=== PATIENT | female | born 1990 | race Hispanic/Latino ===

== ENCOUNTER 2022-07-21 17:22 | Day surgery (SDC) | payer OTHER ==
[2022-07-21 17:51] VITALS: BMI 30.2
[2022-07-21 18:18] LABS: Fetal Membranes Rupture No Membranes Rupture (No Rupture)
[2022-07-21] MEDS ORDERED: hydrALAZINE 20 MG/ML VIAL SLOW IVP PRN (18:36)
[2022-07-22 15:33] LABS: Chlamydia by PCR Not Detected (NotDetected); GC by PCR Not Detected (NotDetected)
== END 2022-07-21 18:48 | disposition home or self-care (01) ==
LOC: CSHLD/OP 17:22
PROVIDERS: ATTEND Obstetrics & Gynecology
DX: O99.891 Other specified diseases and conditions complicating pregnancy (principal); N89.8 Other specified noninflammatory disorders of vagina; O47.03 False labor before 37 completed weeks of gestation, third trimester; Z3A.35 35 weeks gestation of pregnancy
CPT/HCPCS: 84112; 87480; 87491; 87510; 87591; 87660; 99285

== ENCOUNTER 2022-08-23 06:00 | Inpatient (IN) | payer OTHER ==
[2022-08-23 06:44] VITALS: BMI 32.0
[2022-08-23] MEDS ORDERED: HYDROcodone/Acetaminophen 5/325 mg Tablet PO PRN ×3 (06:44→17:31)
[2022-08-23] MEDS ORDERED: Promethazine HCl 25 MG/ML VIAL IM PRN ×2 (06:44→09:32)
[2022-08-23] MEDS ORDERED: NS w/ Oxytocin 30 units 500 ML IV SCH ×3 (06:44→17:31)
[2022-08-23] MEDS ORDERED: Lidocaine 1% (PF) 30 ML VIAL SC PRN (06:44)
[2022-08-23] MEDS ORDERED: Butorphanol Tartrate 1 MG/ML VIAL SLOW IVP PRN (06:44)
[2022-08-23] MEDS ORDERED: hydrALAZINE 20 MG/ML VIAL SLOW IVP PRN ×2 (06:44→17:31)
[2022-08-23] MEDS ORDERED: Ibuprofen 800 MG TAB PO PRN (06:44)
[2022-08-23] MEDS ORDERED: Ondansetron PF 4 MG/2 ML Vial IVP PRN ×3 (06:44→17:31)
[2022-08-23] MEDS: Lactated Ringer's 1,000 ML IV SCH ×2 (07:10→18:34)
[2022-08-23 07:31] LABS: Hemoglobin 10.2 g/dL (12.0-15.5); Mean Corpuscular HGB CONC 33.1 g/dL (32.0-36.0); Mean Corpuscular Hemoglobin 25.1 pg (27.0-33.0); Mean Corpuscular Volume 75.7 fl (81.6-98.3); Platelet Count 227 10x3/uL (150-450); RBC Distribution Width 14.6 % (11.5-14.5); Red Blood Cell (RBC) Count 4.07 10x6/uL (3.90-5.03); White Blood Cell (WBC) Count 9.8 10x3/uL (3.5-10.5)
[2022-08-23] MEDS ORDERED: Sodium Chloride 0.9% (PF) 10 ML VIAL ONE (08:00)
[2022-08-23] MEDS ORDERED: Bupivacaine 0.25% HCL 30 ML VIAL ONE (08:00)
[2022-08-23 08:19] LABS: Syphilis Antibody Nonreactive (Nonreactive); Syphilis Antibody Index 0.03 S/CO (<1.00 Non-Reactive)
[2022-08-23 08:20] LABS: HBSAg Index 0.19 S/CO (0-0.99); Hep B Surf Ag Non-Reactive S/CO (NonReactive)
[2022-08-23] MEDS ORDERED: Fentanyl 2 mcg/Bup 0.1% Cadd 100 ML ONE (08:36)
[2022-08-23] MEDS ORDERED: diphenhydrAMINE 50 MG/ML VIAL IVP PRN (09:32)
[2022-08-23] MEDS ORDERED: Acetaminophen 325 MG TAB PO PRN (09:32)
[2022-08-23] MEDS ORDERED: Moisturizing Cream (Eucerin) 113 GM JAR TOP PRN (09:32)
[2022-08-23] MEDS ORDERED: Naloxone HCl 0.4 mg/ml Vial IVP PRN ×2 (09:32)
[2022-08-23] MEDS ORDERED: ePHEDrine Sulfate 50 MG/10 ML VIAL SLOW IVP PRN (09:32)
[2022-08-23] MEDS ORDERED: Lactated Ringer's 500 ML IV PRN (09:36)
[2022-08-23] MEDS ORDERED: Communication Order-Pharmacy FS SCH (09:45)
[2022-08-23] MEDS ORDERED: Fentanyl 2 mcg/Bupivacaine 0.1% Cassette 100 ML EPIDURAL SCH (09:45)
[2022-08-23 10:50] LABS: SARS-CoV-2 NAA Rapid Test Not Detected (NotDetected)
[2022-08-23] MEDS ORDERED: Simethicone Chewable 80 MG TAB PO PRN (17:31)
[2022-08-23] MEDS ORDERED: Bisacodyl 10 MG SUPP PR PRN (17:31)
[2022-08-23] MEDS ORDERED: Boostrix 0.5 ML (Tdap) VIAL (>/=7 yrs of age) IM ONE (17:31)
[2022-08-23] MEDS: Ibuprofen 800 MG TAB PO SCH ×2 (18:33→21:25)
[2022-08-23] MEDS: Ferrous Sulfate 325 MG TAB PO SCH (21:25)
[2022-08-23] MEDS: Docusate 100 MG CAP PO SCH (21:25)
[2022-08-24] MEDS: HYDROcodone/Acetaminophen 5/325 mg Tablet PO PRN ×2 (02:28→08:11)
[2022-08-24] MEDS: Ibuprofen 800 MG TAB PO SCH ×3 (05:33→22:24)
[2022-08-24] MEDS: Prenatal Vitamin 1 TAB PO SCH (08:12)
[2022-08-24] MEDS: Ferrous Sulfate 325 MG TAB PO SCH ×2 (08:12→22:25)
[2022-08-24] MEDS: Docusate 100 MG CAP PO SCH ×2 (08:12→22:24)
[2022-08-25] MEDS: Ibuprofen 800 MG TAB PO SCH (05:09)
[2022-08-25 07:53] VITALS: BP 121/70; TEMP 98.5
[2022-08-25] MEDS: Prenatal Vitamin 1 TAB PO SCH (08:51)
[2022-08-25] MEDS: Docusate 100 MG CAP PO SCH (08:51)
[2022-08-25] MEDS: Ferrous Sulfate 325 MG TAB PO SCH (12:47)
== END 2022-08-25 12:45 | disposition home or self-care (01) | DRG 807 ==
LOC: CSHLD 06:07 → CSHPED 17:15
PROVIDERS: ADMIT Obstetrics & Gynecology; ATTEND Obstetrics & Gynecology
PROC: 10E0XZZ Delivery of Products of Conception, External Approach (ICD-10-PCS; principal; 2022-08-23)
PROC: 0KQM0ZZ Repair Perineum Muscle, Open Approach (ICD-10-PCS; 2022-08-23)
DX: O70.1 Second degree perineal laceration during delivery (principal); Z37.0 Single live birth; Z3A.40 40 weeks gestation of pregnancy; Z20.822 Contact with and (suspected) exposure to COVID-19
CPT/HCPCS: 36415; 51702; 85027; 86780; 86850; 86900; 86901; 87340; J2405; J2590; J7120; S0020; U0002

== ENCOUNTER 2024-08-19 05:05 | Inpatient (IN) | payer BC ==
[2024-08-18 12:55] LABS: Hematocrit 34.3 % (34.9-44.5); Hemoglobin 11.1 g/dL (12.0-15.5); Platelet Count 210 10x3/uL (150-450)
[2024-08-18 13:23] LABS: Syphilis Antibody Nonreactive (Nonreactive); Syphilis Antibody Index 0.02 S/CO (<1.00 Non-Reactive)
[2024-08-18 13:24] LABS: HBsAg Index 0.16 S/CO (0-0.99); Hep B Surf Ag Non-Reactive S/CO (NonReactive)
[2024-08-19 05:19] VITALS: BMI 32.9
[2024-08-19] MEDS ORDERED: Promethazine HCl 25 MG/ML VIAL IM PRN ×2 (07:03→07:15)
[2024-08-19] MEDS ORDERED: hydrALAZINE 20 MG/ML VIAL SLOW IVP PRN ×2 (07:03→10:27)
[2024-08-19] MEDS ORDERED: Ondansetron PF 4 MG/2 ML Vial IVP PRN ×3 (07:03→07:15)
[2024-08-19] MEDS ORDERED: Bicitra 30 ML UDCUP PO PRN (07:03)
[2024-08-19] MEDS ORDERED: Naloxone HCl 0.4 mg/ml Vial IVP PRN ×2 (07:15)
[2024-08-19] MEDS ORDERED: Ketorolac Tromethamine 30 MG (1 mL) VIAL IVP SCH (07:15)
[2024-08-19] MEDS ORDERED: Naloxone HCl 0.4 mg/ml Vial IV PRN (07:15)
[2024-08-19] MEDS ORDERED: HYDROmorphone 0.5 MG/0.5 ML SYRINGE SLOW IVP PRN (07:15)
[2024-08-19] MEDS ORDERED: Moisturizing Cream (Eucerin) 113 GM JAR TOP PRN (07:15)
[2024-08-19] MEDS ORDERED: Communication Order-Pharmacy FS SCH (07:15)
[2024-08-19] MEDS ORDERED: Meperidine HCl/PF 25 MG (1 mL) VIAL SLOW IVP PRN (07:15)
[2024-08-19] MEDS ORDERED: diphenhydrAMINE 50 MG/ML VIAL IVP PRN (07:15)
[2024-08-19] MEDS ORDERED: Ketorolac Tromethamine 30 MG (1 mL) VIAL IVP PRN (07:15)
[2024-08-19] MEDS ORDERED: fentaNYL 50 mcg/mL 1 mL Vial SLOW IVP PRN (07:15)
[2024-08-19] MEDS: Famotidine/PF 20 mg/2ml Vial SLOW IVP PRN (07:31)
[2024-08-19] MEDS: Ondansetron PF 4 MG/2 ML Vial ONE (07:31)
[2024-08-19] MEDS: CEFAZOLIN 2 GM in Sodium Chloride 0.9% 100 ML IVPB SCH (07:32)
[2024-08-19] MEDS: Lactated Ringer's 1,000 ML IV SCH (08:55)
[2024-08-19] MEDS: Oxytocin 30 units/NS 500 ML 500 ML IV SCH (08:56)
[2024-08-19] MEDS: Morphine PF 10 MG/10 ML VIAL ONE (10:17)
[2024-08-19] MEDS: fentaNYL 50 mcg/mL 1 mL Vial ONE (10:17)
[2024-08-19] MEDS: Oxytocin 10 UNITS/ML VIAL ONE (10:18)
[2024-08-19] MEDS: PHENYLEPHRINE-NS 100 MCG/ML 10 ML SYRINGE ONE (10:18)
[2024-08-19] MEDS ORDERED: diphenhydrAMINE 25 MG CAP PO PRN (10:27)
[2024-08-19] MEDS ORDERED: Zolpidem Tartrate 5 MG TAB PO PRN (10:27)
[2024-08-19] MEDS ORDERED: Oxytocin 30 units/NS 500 ML 500 ML IV SCH (10:27)
[2024-08-19] MEDS ORDERED: Bisacodyl 10 MG SUPP PR PRN (10:27)
[2024-08-19] MEDS ORDERED: Lanolin Ointment 7 GM TUBE TOP PRN (10:27)
[2024-08-19] MEDS ORDERED: Simethicone Chewable 80 MG TAB PO PRN (10:27)
[2024-08-19] MEDS: Carboprost 250 MCG/ML AMP ONE (11:17)
[2024-08-19] MEDS: Oxytocin 30 units/NS 500 ML 500 ML ONE (11:17)
[2024-08-19] MEDS: Tranexamic Acid 1,000 MG/10 ML VIAL ONE ×2 (11:17→11:18)
[2024-08-19] MEDS: Misoprostol 200 MCG TAB ONE (11:17)
[2024-08-19] MEDS: Methylergonovine 0.2 MG/ML VIAL ONE (11:17)
[2024-08-19] MEDS: Phytonadione Neonatal 1 MG/0.5 ML AMP ONE (11:18)
[2024-08-19] MEDS: Erythromycin Base 0.5% Oint 1 GM TUBE ONE (11:18)
[2024-08-19] MEDS: Docusate 100 MG CAP PO SCH ×2 (11:27→20:31)
[2024-08-19] MEDS: Prenatal Vitamin 1 TAB PO SCH (11:28)
[2024-08-19] MEDS: Ferrous Sulfate 325 MG TAB PO SCH ×2 (11:28→20:22)
[2024-08-19] MEDS ORDERED: Ibuprofen 800 MG TAB PO SCH (14:00)
[2024-08-19] MEDS: Ondansetron PF 4 MG/2 ML Vial IVP PRN (15:04)
[2024-08-19] MEDS: Ketorolac Tromethamine 30 MG (1 mL) VIAL IVP SCH (15:04)
[2024-08-19] MEDS: Boostrix 0.5 ML (Tdap) VIAL (>/=7 yrs of age) IM ONE (17:59)
[2024-08-20 04:19] LABS: Hematocrit 32.2 % (34.9-44.5); Hemoglobin 10.2 g/dL (12.0-15.5); Mean Corpuscular HGB CONC 31.7 g/dL (32.0-36.0); Mean Corpuscular Hemoglobin 25.6 pg (27.0-33.0); Mean Corpuscular Volume 80.9 fL (81.6-98.3); Mean Platelet Volume 10.5 fL (7.4-10.4); Platelet Count 186 10x3/uL (150-450); RBC Distribution Width 16.8 % (11.5-14.5); Red Blood Cell (RBC) Count 3.98 10x6/uL (3.90-5.03); White Blood Cell (WBC) Count 11.3 10x3/uL (3.5-10.5)
[2024-08-20] MEDS: HYDROcodone/Acetaminophen 5/325 mg Tablet PO PRN (09:30)
[2024-08-20] MEDS: Prenatal Vitamin 1 TAB PO SCH (09:31)
[2024-08-20] MEDS: Ibuprofen 800 MG TAB PO SCH (14:21)
[2024-08-21 08:04] VITALS: BP 120/68; TEMP 98.2
[2024-08-21] MEDS: HYDROcodone/Acetaminophen 5/325 mg Tablet PO PRN (11:13)
== END 2024-08-21 15:20 | disposition home or self-care (01) | DRG 788 ==
LOC: CSHLD 05:05 → CSHPED 11:00
PROVIDERS: ADMIT Obstetrics & Gynecology; ATTEND Obstetrics & Gynecology
PROC: 10D00Z1 Extraction of Products of Conception, Low, Open Approach (ICD-10-PCS; principal; 2024-08-19)
PROC: 3E033XZ Introduction of Vasopressor into Peripheral Vein, Percutaneous Approach (ICD-10-PCS; 2024-08-19)
PROC: 3E0234Z Introduction of Serum, Toxoid and Vaccine into Muscle, Percutaneous Approach (ICD-10-PCS; 2024-08-19)
DX: O44.43 Low lying placenta NOS or without hemorrhage, third trimester (principal); Z37.0 Single live birth; Z23 Encounter for immunization; Z3A.37 37 weeks gestation of pregnancy
CPT/HCPCS: 36415; 51702; 85014; 85018; 85027; 85049; 86780; 86850; 86900; 86901; 87340; J1885; J2274; J2405; J2590; J3010; J3490; J7120